=== PATIENT | female | born 2000 | race Caucasian/White ===

== ENCOUNTER 2022-03-07 14:00 | Observation (INO) ==
[2022-03-07 16:01] LABS: Basophils # (auto) 0.06 K/uL (0-0.2); Basophils % (auto) 0.5 %; Eosinophils # (auto) 0.18 K/uL (0-0.50); Eosinophils % (auto) 1.5 %; Hematocrit (blood only) 38.4 % (34.1-44.9); Hemoglobin 13.1 g/dl (12.0-16.0); Immature Granulocytes # (auto) 0.06 K/uL (0.00-0.02); Immature Granulocytes % (auto) 0.5 %; Lymphocytes # (auto) 2.76 K/uL (1.2-3.4); Lymphocytes % (auto) 22.9 %; Mean Corpuscular Hemoglobin 28.5 pg (25.0-34.0); Mean Corpuscular Hgb Conc 34.1 g/dL (32.0-36.0); Mean Corpuscular Volume 83.5 fL (80.0-100.0); Mean Platelet Volume 8.5 fL (9.4-12.3); Monocytes # (auto) 0.43 K/uL (0.24-0.82); Monocytes % (auto) 3.6 %; Neutrophils # (auto) 8.56 K/uL (1.4-6.5); Platelet Count 608 K/uL (130-400); RDW Coefficient of Variation 11.7 % (11.5-14.5); RDW Standard Deviation 35.2 fL (36.4-46.3); White Blood Count 12.05 K/ul (4.8-10.8)
[2022-03-07] MEDS ORDERED: metroNIDAZOLE 500 MG/100 ML BAG IV STA (16:21)
[2022-03-07] MEDS ORDERED: cefTRIAXone SODIUM 1,000 MG in DEXTROSE 5% AD-VAN 50 ML IV STA (16:21)
[2022-03-07 16:33] LABS: Albumin Globulin Ratio 1.1 (0.9-2); Albumin Level 4.1 gm/dl (3.4-5.0); Bilirubin,Total 0.5 mg/dl (0.2-1.0); Calcium 9.8 mg/dl (8.5-10.1); Creatinine Clr Calc Pharmacy 147.2 ml/min; Est GFR (African American) 129.7 ml/min; Est GFR (Non-African American) 111.9 ml/min; Globulin 3.7 gm/dl (2.5-4.0); Potassium 4.4 mmol/L (3.5-5.1); Total Protein 7.8 gm/dl (6.0-8.3)
--- NOTE | 2022-03-07 16:34 | Emergency Department Note ---
History of Present Illness General Chief Complaint: Abdominal Pain Stated Complaint: REFERRED BY DR; POSSIBLE ACUTE APPENDISITIS Time Seen by Provider: 03/07/22 16:06 History of Present Illness Provider Complaint: abdominal pain Onset (ago): 2 week(s) Pain Consistency: now resolved Location: RLQ Quality: + stabbing and + sharp Relieved By: + nothing Exacerbated By: + nothing Context: no foreign travel or no recent antibiotic use Associated Symptoms: no fever, no dysuria, no back pain, no chest pain and no breathing difficulty Patient had outpatient CT scan which showed appendicitis at [facility]. Related Data Last Menstrual Period: 09/13/19 Patient Confirmed : No Home Medications Medication Instructions Recorded Confirmed Type albuterol sulfate 90 mcg/actuation 90 mcg inhalation Q6H PRN sob 08/25/19 03/07/22 History breath activated powder inhaler,sensor multivitamin 1 tab PO DAILY 09/16/19 03/07/22 History desogestrel 0.15 mg-ethinyl 1 tab PO DAILY 03/07/22 03/07/22 History estradiol 0.03 mg tablet (Enskyce) scopolamine base 1 mg over 3 days 1 patch transdermal UD 03/07/22 03/07/22 History transdermal patch Allergies Allergy/AdvReac Type Severity Reaction Status Date / Time No Known Allergies Allergy Verified 03/07/22 16:36 Past Med/Surg History Medical History Asthma stable Wound cellulitis left foot--> 09/2019 after "bad sunburn, Following with wound clinic and states wound is healed at this time, improving/finishing abx Surgical History H/O wisdom tooth extraction (09/26/19) Removal of [place] Teeth #1, 16, 17, 32 Dr. Gordon 09/26/2019 No history of previous surgery Family History Grandfather (Maternal) Diabetes Grandfather (Paternal) Hypertension Other No family history of adverse response to anesthesia Social History Smoking Status: Never smoker Second Hand Exposure: No; Hx Alcohol Use: No Hx Substance Use: No Preferred Language: Telugu Communication Ability: Effective Visual Impairment: No Limitations Trouble Shooter Required: No Beliefs That Will Affect Care: None marital status: Single Feels Safe at Home: Yes Do you think of yourself as: straight/heterosexual Review of Systems A total of 10 systems reviewed and were otherwise negative Physical Exam 2 Vital Signs: Vital Signs - 24 hr 03/07/22 14:08 03/07/22 18:00 Temperature 36.5 C Temperature Source Skin Pulse Rate 119 H Pulse Rate [Apical ] 111 H Pulse Rhythm Regular Pulse Strength Normal Respiratory Rate 20 19 Respiratory Effort / Characteristics Non-Labored Sponta neous Non-Labored Sponta neous Respiratory Depth Normal Normal Blood Pressure 153/86 H Blood Pressure [Le ft Arm] 108/87 Blood Pressure Sabiha n 108 Blood Pressure Sabiha n [Left Arm] 94 Pulse Oximetry 97 94 Oxygen Delivery Me thod Room Air Room Air Sepsis Recent Feve r Within 48 Hours No Sepsis New/Unexpla ined Change in Men jose luis Status N/A Sepsis Action Take n by Nursing No Action Required Physical Exam: Physical Exam GENERAL: She is oriented to person, place, and time. She appears well-developed and well-nourished. She does not appear distressed. EYES: Conjunctivae and EOM are normal. Right eye exhibits no discharge. Left eye exhibits no discharge. No scleral icterus. NECK: Normal range of motion. Neck supple. No JVD present. CV: Normal rate, regular rhythm, normal heart sounds and intact distal pulses. There is no peripheral edema. Palpable radial pulses bue. PULM/CHEST: Effort normal and breath sounds normal. No respiratory distress. No stridor. She has no wheezes. She has no rales. ABD: The abdomen is soft and obese There is no tenderness. MUSC/SKEL: Normal range of motion. There is no peripheral edema, tenderness or deformity. NEURO: GCS eye subscore is 4. GCS verbal subscore is 5. GCS motor subscore is 6. SKIN: Skin is warm and dry. She is not diaphoretic. PSYCH: She has a normal mood and affect. Behavior is normal. Judgment and thought content normal. Course Course 1606: The patient was evaluated in room A11A. A complete history and physical exam was performed Cardiac monitoring: An order was placed for continuous cardiac monitoring. The monitor shows a rate of 90 with sinus rhythm 1632: Cassi regional merchandising manager was able to obtain external medical records which showed that the patient has CT scan of the abdomen pelvis done today at [facility] which showed acute appendicitis. Discussed case with Dr. Suresh general surgery will be down to evaluate the patient. Rocephin and Flagyl ordered for the patient. Administered Medications Discontinued Medications Ceftriaxone Sodium 1,000 mg/ (Dextrose) 50 mls @ 100 mls/hr IV NOW STA Stop: 03/07/22 16:50 Last Infusion: 03/07/22 17:56 Dose: 0 mls/hr Documented By: Admin: 03/07/22 17:22 Dose: 100 mls/hr Documented By: Metronidazole (Flagyl) 500 mg in 100 mls @ 100 mls/hr IV NOW STA Stop: 03/07/22 17:20 Last Infusion: 03/07/22 18:52 Dose: 0 mls/hr Documented By: Admin: 03/07/22 17:52 Dose: 100 mls/hr Documented By: DAY Medical Decision Making Laboratory Data Result diagrams: 03/07/22 15:50 03/07/22 15:50 Lab Results 03/07/22 03/07/22 03/07/22 Range/Units 15:50 15:50 16:48 WBC 12.05 H (4.8-10.8) K/ul RBC 4.60 (3.93-5.22) M/uL Hgb 13.1 (12.0-16.0) g/dl Hct 38.4 (34.1-44.9) % MCV 83.5 (80.0-100.0) fL MCH 28.5 (25.0-34.0) pg MCHC 34.1 (32.0-36.0) g/dL RDW Std Deviation 35.2 L (36.4-46.3) fL RDW Coeff of Elsi 11.7 (11.5-14.5) % Plt Count 608 H (130-400) K/uL MPV 8.5 L (9.4-12.3) fL Immature Gran % (Auto) 0.5 % Neut % (Auto) 71.0 % Lymph % (Auto) 22.9 % Tripp % (Auto) 3.6 % Eos % (Auto) 1.5 % Baso % (Auto) 0.5 % Neut # (Auto) 8.56 H (1.4-6.5) K/uL Lymph # (Auto) 2.76 (1.2-3.4) K/uL Tripp # (Auto) 0.43 (0.24-0.82) K/uL Eos # (Auto) 0.18 (0-0.50) K/uL Baso # (Auto) 0.06 (0-0.2) K/uL Immature Gran # (Auto) 0.06 H (0.00-0.02) K/uL Sodium 139 (136-145) mmol/L Potassium 4.4 (3.5-5.1) mmol/L Chloride 102 (98-107) mmol/L Carbon Dioxide 28 (21-32) mmol/L Anion Gap 9 (3-11) BUN 10 (6-23) mg/dl Creatinine 0.77 (0.6-1.2) mg/dl Est Cr Clr Drug Dosing 147.2 ml/min Est GFR ( Amer) 129.7 ml/min Est GFR (Non-Af Amer) 111.9 ml/min BUN/Creatinine Ratio 13.0 (10-20) Glucose 93 (70-99(Fasting)) mg/dl Calcium 9.8 (8.5-10.1) mg/dl Total Bilirubin 0.5 (0.2-1.0) mg/dl AST 37 (13-39) U/L ALT 61 H (7-52) U/L Alkaline Phosphatase 64 (34-104) U/L Total Protein 7.8 (6.0-8.3) gm/dl Albumin 4.1 (3.4-5.0) gm/dl Globulin 3.7 (2.5-4.0) gm/dl Albumin/Globulin Ratio 1.1 (0.9-2) Lipase 24 (11-82) U/L SARS-CoV-2, RNA, NAAT NEGATIVE (NEGATIVE) [facility] Narrative 1606: The patient was evaluated in room A11A. A complete history and physical exam was performed Cardiac monitoring: An order was placed for continuous cardiac monitoring. The monitor shows a rate of 90 with sinus rhythm 1632: Cassi regional merchandising manager was able to obtain external medical records which showed that the patient has CT scan of the abdomen pelvis done today at [facility] which showed acute appendicitis. Discussed case with Dr. Suresh general surgery will be down to evaluate the patient. Rocephin and Flagyl ordered for the patient. Impression & Plan Acute appendicitis Discharge Plan Visit Data Chief Complaint: Abdominal Pain Stated Complaint: REFERRED BY DR; POSSIBLE ACUTE APPENDISITIS ED Provider: Reyes Carrasquillo Discharge Problem: Acute appendicitis Patient Disposition: Admitted As Inpatient Forms Stand Alone Forms: [facility] [place] Prescriptions Prescriptions: No Action albuterol sulfate 90 mcg/actuation aero powdr breath act w/sensor 90 mcg INH Q6H PRN (Reason: sob) multivitamin Tablet 1 tab PO DAILY desogestrel-ethinyl estradiol [Enskyce] 0.15-0.03 mg tablet 1 tab PO DAILY scopolamine base 1 mg over 3 days patch 3 day 1 patch transdermal UD Referrals Referrals: Sivakumar Woodall MD [Outside Practitioners] -
--- NOTE | 2022-03-07 17:25 | History & Physical Report ---
Date of Service March 07, 2022 Assessment & Plan (1) Acute appendicitis: Plan 21-year-old woman with a 4-week history of right lower quadrant abdominal pain presents to the emergency department after a CT scan demonstrated acute appendicitis with a large phlegmon in the right lower quadrant. She has a white count of 12. She has moderate tenderness in the right lower quadrant. There are no peritoneal signs. There is no evidence of perforation. A long discussion with the patient and her mother concerning the appendicitis with phlegmon. Given the large phlegmon, as well as the length of time that this process has been active, surgical intervention could potentially result in requiring an ileocecectomy due to all the inflammation. In the case of large phlegmon, admission to the hospital with IV antibiotic therapy is warranted. All her questions were answered, and they are agreeable with this plan. We will admit her to the hospital and place her on IV Zosyn. We will monitor her over the next 24 to 48 hours. If her symptoms worsen, she may require more urgent operation. If she responds to antibiotic treatment, we will plan for a full course of antibiotics with interval appendectomy in the future. History of Present Illness Chief Complaint: Acute appendicitis Primary Care Provider: Sivakumar Woodall MD 21-year-old woman presents with a 4-week history of vague right lower quadrant cramping pain. She states it occurred 2-3 times per week. It has not been accompanied by nausea, vomiting, fevers, chills. She denies constipation or diarrhea. She denies blood in her stool. The pain has been on the right side radiating around to her back. She was seen by her primary care physician today, who ordered labs and a CT scan. The CT scan demonstrates acute appendicitis with a large phlegmon involving the cecum and terminal ileum. It does not appear that the appendix is perforated and there is no fluid collection. Allergies Allergy/AdvReac Type Severity Reaction Status Date / Time No Known Allergies Allergy Verified 03/07/22 16:36 Home Medications Medication Instructions Recorded Confirmed Type albuterol sulfate 90 mcg/actuation 90 mcg inhalation Q6H PRN sob 08/25/19 03/07/22 History breath activated powder inhaler,sensor multivitamin 1 tab PO DAILY 09/16/19 03/07/22 History desogestrel 0.15 mg-ethinyl 1 tab PO DAILY 03/07/22 03/07/22 History estradiol 0.03 mg tablet (Enskyce) scopolamine base 1 mg over 3 days 1 patch transdermal UD 03/07/22 03/07/22 History transdermal patch Past Med/Surg History Medical History Asthma stable Wound cellulitis left foot--> 09/2019 after "bad sunburn, Following with wound clinic and states wound is healed at this time, improving/finishing abx Surgical History H/O wisdom tooth extraction (09/26/19) Removal of [place] Teeth #1, 16, 17, 32 Dr. Gordon 09/26/2019 No history of previous surgery Family History Grandfather (Maternal) Diabetes Grandfather (Paternal) Hypertension Other No family history of adverse response to anesthesia Social History Smoking Status: Never smoker Second Hand Exposure: No; Hx Alcohol Use: No Hx Substance Use: No Preferred Language: Taiwanese Communication Ability: Effective Visual Impairment: No Limitations School Counselor Required: No Beliefs That Will Affect Care: None marital status: Single Feels Safe at Home: Yes Do you think of yourself as: straight/heterosexual Review of Systems Review of Systems: All systems reviewed & are unremarkable except as noted in HPI & below Physical Exam Constitutional: WD/WN, vitals as above Eyes: PERRL, conjunctivae normal, anicteric sclerae Neck: trachea midline, no thyromegaly Respiratory: normal respiratory effort, lungs clear to auscultation Cardiovascular: RRR, no murmur, no edema Gastrointestinal (Abdomen): Inspection/Auscultation: abdomen normal to inspection; abdomen not distended Percussion/Palpation: + abdomen tender (RLQ/McBurney's point) and abdomen soft; no guarding, abdomen not rigid and abdomen not firm Skin: no rashes, warm and dry Psychiatric: A+Ox3, euthymic affect Results & Data Results & Data ([place]) Vital Signs (Past 12 Hours) Vital Signs Temp Pulse Resp BP Pulse Ox O2 Del Method 03/07/22 14:08 36.5 C 119 H 20 153/86 H 97 Room Air Laboratory Results 03/07/22 03/07/22 03/07/22 Range/Units 16:48 15:50 15:50 WBC 12.05 H (4.8-10.8) K/ul RBC 4.60 (3.93-5.22) M/uL Hgb 13.1 (12.0-16.0) g/dl Hct 38.4 (34.1-44.9) % MCV 83.5 (80.0-100.0) fL MCH 28.5 (25.0-34.0) pg MCHC 34.1 (32.0-36.0) g/dL RDW Std Deviation 35.2 L (36.4-46.3) fL RDW Coeff of Elsi 11.7 (11.5-14.5) % Plt Count 608 H (130-400) K/uL MPV 8.5 L (9.4-12.3) fL Immature Gran % (Auto) 0.5 % Neut % (Auto) 71.0 % Lymph % (Auto) 22.9 % Burke % (Auto) 3.6 % Eos % (Auto) 1.5 % Baso % (Auto) 0.5 % Neut # (Auto) 8.56 H (1.4-6.5) K/uL Lymph # (Auto) 2.76 (1.2-3.4) K/uL Burke # (Auto) 0.43 (0.24-0.82) K/uL Eos # (Auto) 0.18 (0-0.50) K/uL Baso # (Auto) 0.06 (0-0.2) K/uL Immature Gran # (Auto) 0.06 H (0.00-0.02) K/uL Sodium 139 (136-145) mmol/L Potassium 4.4 (3.5-5.1) mmol/L Chloride 102 (98-107) mmol/L Carbon Dioxide 28 (21-32) mmol/L Anion Gap 9 (3-11) BUN 10 (6-23) mg/dl Creatinine 0.77 (0.6-1.2) mg/dl Est Cr Clr Drug Dosing 147.2 ml/min Est GFR ( Amer) 129.7 ml/min Est GFR (Non-Af Amer) 111.9 ml/min BUN/Creatinine Ratio 13.0 (10-20) Glucose 93 (70-99(Fasting)) mg/dl Calcium 9.8 (8.5-10.1) mg/dl Total Bilirubin 0.5 (0.2-1.0) mg/dl AST 37 (13-39) U/L ALT 61 H (7-52) U/L Alkaline Phosphatase 64 (34-104) U/L Total Protein 7.8 (6.0-8.3) gm/dl Albumin 4.1 (3.4-5.0) gm/dl Globulin 3.7 (2.5-4.0) gm/dl Albumin/Globulin Ratio 1.1 (0.9-2) Lipase 24 (11-82) U/L SARS-CoV-2, RNA, NAAT NEGATIVE (NEGATIVE) Code Status & VTE Plan VTE Prophylaxis Plan VTE Prophylaxis will be ordered: Yes
[2022-03-07] MEDS ORDERED: traMADol HCL 50 MG TABLET PO PRN (20:43)
[2022-03-07] MEDS ORDERED: MoRPHine SULFATE 2 MG/ML CARP IV PRN (20:43)
[2022-03-07] MEDS ORDERED: KETOROLAC 30 MG/ML VIAL IV PRN (20:43)
[2022-03-07] MEDS ORDERED: diphenhydrAMINE Capsule 25 MG CAP PO PRN (20:43)
[2022-03-07] MEDS ORDERED: ACETAMINOPHEN 325 MG TAB PO PRN (20:43)
[2022-03-07] MEDS ORDERED: ONDANSETRON INJ 2 MG/ML 2 ML VIAL IV PRN (20:43)
[2022-03-07] MEDS ORDERED: PROMETHAZINE HCL 12.5 MG in SODIUM CHLORIDE 0.9% 50 ML IV PRN (20:43)
[2022-03-07] MEDS: PIPERACILLIN/TAZOBACTAM 3.375 GM in DEXTROSE 5% 100 ML IV SCH (22:09)
[2022-03-07] MEDS: ENOXAPARIN INJ 40 MG/0.4 ML SYR SQ SCH (22:32)
[2022-03-08] MEDS: PIPERACILLIN/TAZOBACTAM 3.375 GM in DEXTROSE 5% 100 ML IV SCH ×3 (05:52→20:19)
[2022-03-08 09:15] LABS: Appearance Urine Clear (Clear); Bacteria Urine Automated Negative (Negative); Bilirubin Urine Negative (Negative); Blood Urine Negative (Negative); Color Urine Yellow; Epithelial Cell Urine Auto >30 /lpf (0-5); Glucose Urine UA Negative (Negative); Ketones Urine Trace (Negative); Leukocyte Esterase Urine 2+ (Negative); Nitrite Urine Negative (Negative); Protein Urine Negative (Negative); RBC Urine Automated 0-4 /hpf (0-4); Specific Gravity Urine 1.025 (1.000-1.030); Urobilinogen Urine Negative (Negative)
--- NOTE | 2022-03-08 10:58 | Surgery Progress Note ---
Date of Service March 08, 2022 Assessment & Plan (1) Acute appendicitis: Plan: with large phlegmon right lower quadrant. Appears to be responding to IV antibiotics. Will continue for 48 hours prior to switching to PO. continue diet. Recheck labs in am. Admission and Anticipated Discharge Date Admission Date: March 07, 2022 Subjective No pain. tolerating diet. Ambulating. No nausea. Parents at bedside Review of Systems Review of Systems: All systems reviewed & are unremarkable except as noted in HPI & below Physical Exam Constitutional: WD/WN, vitals as above Respiratory: normal respiratory effort, lungs clear to auscultation Cardiovascular: RRR, no murmur, no edema Gastrointestinal (Abdomen): normal bowel sounds, soft, nontender, no hepatosplenomegaly Musculoskeletal: no cyanosis or clubbing, extremities motor strength 5/5 Neurologic: awake; no focal motor deficits Psychiatric: A+Ox3, euthymic affect Results & Data ([facility]) Vital Signs (Past 12 Hours) Vital Signs Temp Pulse Resp BP Pulse Ox O2 Del Method 03/08/22 07:59 37.0 C 89 14 121/78 98 Room Air Laboratory Results 03/08/22 03/08/22 03/07/22 Range/Units Unknown Unknown 16:48 WBC (4.8-10.8) K/ul RBC (3.93-5.22) M/uL Hgb (12.0-16.0) g/dl Hct (34.1-44.9) % MCV (80.0-100.0) fL MCH (25.0-34.0) pg MCHC (32.0-36.0) g/dL RDW Std Deviation (36.4-46.3) fL RDW Coeff of Elsi (11.5-14.5) % Plt Count (130-400) K/uL MPV (9.4-12.3) fL Immature Gran % (Auto) % Neut % (Auto) % Lymph % (Auto) % Person % (Auto) % Eos % (Auto) % Baso % (Auto) % Neut # (Auto) (1.4-6.5) K/uL Lymph # (Auto) (1.2-3.4) K/uL Person # (Auto) (0.24-0.82) K/uL Eos # (Auto) (0-0.50) K/uL Baso # (Auto) (0-0.2) K/uL Immature Gran # (Auto) (0.00-0.02) K/uL Sodium (136-145) mmol/L Potassium (3.5-5.1) mmol/L Chloride (98-107) mmol/L Carbon Dioxide (21-32) mmol/L Anion Gap (3-11) BUN (6-23) mg/dl Creatinine (0.6-1.2) mg/dl Est Cr Clr Drug Dosing ml/min Est GFR ( Amer) ml/min Est GFR (Non-Af Amer) ml/min BUN/Creatinine Ratio (10-20) Glucose (70-99(Fasting)) mg/dl Calcium (8.5-10.1) mg/dl Total Bilirubin (0.2-1.0) mg/dl AST (13-39) U/L ALT (7-52) U/L Alkaline Phosphatase (34-104) U/L Total Protein (6.0-8.3) gm/dl Albumin (3.4-5.0) gm/dl Globulin (2.5-4.0) gm/dl Albumin/Globulin Ratio (0.9-2) Lipase (11-82) U/L Urine Color Yellow Urine Appearance Clear (Clear) Urine pH 6.0 (4.5-7.5) Ur Specific Atkinson 1.025 (1.000-1.030) Urine Protein Negative (Negative) Urine Glucose (UA) Negative (Negative) Urine Ketones Trace H (Negative) Urine Blood Negative (Negative) Urine Nitrite Negative (Negative) Urine Bilirubin Negative (Negative) Urine Urobilinogen Negative (Negative) Ur Leukocyte Esterase 2+ H (Negative) Urine WBC (Auto) 5-10 H (0-5) /hpf Urine RBC (Auto) 0-4 (0-4) /hpf U Hyaline Cast (Auto) 1-5 (0-5) /lpf U Epithel Cells (Auto) >30 H (0-5) /lpf Urine Bacteria (Auto) Negative (Negative) POC Ur Test Pending SARS-CoV-2, RNA, NAAT NEGATIVE (NEGATIVE) 03/07/22 03/07/22 Range/Units 15:50 15:50 WBC 12.05 H (4.8-10.8) K/ul RBC 4.60 (3.93-5.22) M/uL Hgb 13.1 (12.0-16.0) g/dl Hct 38.4 (34.1-44.9) % MCV 83.5 (80.0-100.0) fL MCH 28.5 (25.0-34.0) pg MCHC 34.1 (32.0-36.0) g/dL RDW Std Deviation 35.2 L (36.4-46.3) fL RDW Coeff of Elsi 11.7 (11.5-14.5) % Plt Count 608 H (130-400) K/uL MPV 8.5 L (9.4-12.3) fL Immature Gran % (Auto) 0.5 % Neut % (Auto) 71.0 % Lymph % (Auto) 22.9 % Person % (Auto) 3.6 % Eos % (Auto) 1.5 % Baso % (Auto) 0.5 % Neut # (Auto) 8.56 H (1.4-6.5) K/uL Lymph # (Auto) 2.76 (1.2-3.4) K/uL Person # (Auto) 0.43 (0.24-0.82) K/uL Eos # (Auto) 0.18 (0-0.50) K/uL Baso # (Auto) 0.06 (0-0.2) K/uL Immature Gran # (Auto) 0.06 H (0.00-0.02) K/uL Sodium 139 (136-145) mmol/L Potassium 4.4 (3.5-5.1) mmol/L Chloride 102 (98-107) mmol/L Carbon Dioxide 28 (21-32) mmol/L Anion Gap 9 (3-11) BUN 10 (6-23) mg/dl Creatinine 0.77 (0.6-1.2) mg/dl Est Cr Clr Drug Dosing 147.2 ml/min Est GFR ( Amer) 129.7 ml/min Est GFR (Non-Af Amer) 111.9 ml/min BUN/Creatinine Ratio 13.0 (10-20) Glucose 93 (70-99(Fasting)) mg/dl Calcium 9.8 (8.5-10.1) mg/dl Total Bilirubin 0.5 (0.2-1.0) mg/dl AST 37 (13-39) U/L ALT 61 H (7-52) U/L Alkaline Phosphatase 64 (34-104) U/L Total Protein 7.8 (6.0-8.3) gm/dl Albumin 4.1 (3.4-5.0) gm/dl Globulin 3.7 (2.5-4.0) gm/dl Albumin/Globulin Ratio 1.1 (0.9-2) Lipase 24 (11-82) U/L Urine Color Urine Appearance (Clear) Urine pH (4.5-7.5) Ur Specific Atkinson (1.000-1.030) Urine Protein (Negative) Urine Glucose (UA) (Negative) Urine Ketones (Negative) Urine Blood (Negative) Urine Nitrite (Negative) Urine Bilirubin (Negative) Urine Urobilinogen (Negative) Ur Leukocyte Esterase (Negative) Urine WBC (Auto) (0-5) /hpf Urine RBC (Auto) (0-4) /hpf U Hyaline Cast (Auto) (0-5) /lpf U Epithel Cells (Auto) (0-5) /lpf Urine Bacteria (Auto) (Negative) POC Ur Test SARS-CoV-2, RNA, NAAT (NEGATIVE) (1) Acute appendicitis Acute appendicitis type: unspecified acute appendicitis type Qualified Code(s): K35.80 - Unspecified acute appendicitis
[2022-03-08] MEDS: ENOXAPARIN INJ 40 MG/0.4 ML SYR SQ SCH (20:20)
[2022-03-09] MEDS: PIPERACILLIN/TAZOBACTAM 3.375 GM in DEXTROSE 5% 100 ML IV SCH (05:42)
[2022-03-09 07:19] LABS: Basophils # (auto) 0.04 K/uL (0-0.2); Basophils % (auto) 0.5 %; Eosinophils # (auto) 0.45 K/uL (0-0.50); Eosinophils % (auto) 5.2 %; Hematocrit (blood only) 39.3 % (34.1-44.9); Hemoglobin 13.6 g/dl (12.0-16.0); Immature Granulocytes # (auto) 0.04 K/uL (0.00-0.02); Immature Granulocytes % (auto) 0.5 %; Lymphocytes # (auto) 3.17 K/uL (1.2-3.4); Lymphocytes % (auto) 36.7 %; Mean Corpuscular Hemoglobin 28.6 pg (25.0-34.0); Mean Corpuscular Hgb Conc 34.6 g/dL (32.0-36.0); Mean Corpuscular Volume 82.7 fL (80.0-100.0); Mean Platelet Volume 8.6 fL (9.4-12.3); Monocytes # (auto) 0.46 K/uL (0.24-0.82); Monocytes % (auto) 5.3 %; Neutrophils # (auto) 4.47 K/uL (1.4-6.5); Neutrophils % (auto) 51.8 %; Platelet Count 529 K/uL (130-400); RDW Standard Deviation 35.8 fL (36.4-46.3); Red Blood Count 4.75 M/uL (3.93-5.22); White Blood Count 8.63 K/ul (4.8-10.8)
[2022-03-09 07:43] LABS: BUN Creatinine Ratio 11.6 (10-20); Calcium 9.5 mg/dl (8.5-10.1); Creatinine Clr Calc Pharmacy 136.1 ml/min; Est GFR (African American) 113.5 ml/min; Est GFR (Non-African American) 97.9 ml/min; Potassium 4.5 mmol/L (3.5-5.1)
--- NOTE | 2022-03-09 09:46 | Surgery Progress Note ---
Date of Service March 09, 2022 Assessment & Plan (1) Acute appendicitis: Plan: with large phlegmon right lower quadrant. Appears to be responding to IV antibiotics. Leukocytosis resolved. Stable for discharge today on PO antibiotics. Admission and Anticipated Discharge Date Admission Date: March 07, 2022 Subjective No pain. tolerating diet. Ambulating. No nausea. Feels ready to go home. Review of Systems Review of Systems: All systems reviewed & are unremarkable except as noted in HPI & below Physical Exam Constitutional: WD/WN, vitals as above Respiratory: normal respiratory effort, lungs clear to auscultation Cardiovascular: RRR, no murmur, no edema Gastrointestinal (Abdomen): normal bowel sounds, soft, nontender, no hepatosplenomegaly Musculoskeletal: no cyanosis or clubbing, extremities motor strength 5/5 Neurologic: awake; no focal motor deficits Psychiatric: A+Ox3, euthymic affect Results & Data ([facility]) Vital Signs (Past 12 Hours) Vital Signs Temp Pulse Resp BP Pulse Ox O2 Del Method 03/09/22 07:50 36.8 C 82 16 113/73 99 Room Air Laboratory Results 03/09/22 03/09/22 Range/Units 07:04 07:04 WBC 8.63 (4.8-10.8) K/ul RBC 4.75 (3.93-5.22) M/uL Hgb 13.6 (12.0-16.0) g/dl Hct 39.3 (34.1-44.9) % MCV 82.7 (80.0-100.0) fL MCH 28.6 (25.0-34.0) pg MCHC 34.6 (32.0-36.0) g/dL RDW Std Deviation 35.8 L (36.4-46.3) fL RDW Coeff of Elsi 12.0 (11.5-14.5) % Plt Count 529 H (130-400) K/uL MPV 8.6 L (9.4-12.3) fL Immature Gran % (Auto) 0.5 % Neut % (Auto) 51.8 % Lymph % (Auto) 36.7 % Ashe % (Auto) 5.3 % Eos % (Auto) 5.2 % Baso % (Auto) 0.5 % Neut # (Auto) 4.47 (1.4-6.5) K/uL Lymph # (Auto) 3.17 (1.2-3.4) K/uL Ashe # (Auto) 0.46 (0.24-0.82) K/uL Eos # (Auto) 0.45 (0-0.50) K/uL Baso # (Auto) 0.04 (0-0.2) K/uL Immature Gran # (Auto) 0.04 H (0.00-0.02) K/uL Sodium 139 (136-145) mmol/L Potassium 4.5 (3.5-5.1) mmol/L Chloride 102 (98-107) mmol/L Carbon Dioxide 29 (21-32) mmol/L Anion Gap 8 (3-11) BUN 10 (6-23) mg/dl Creatinine 0.86 (0.6-1.2) mg/dl Est Cr Clr Drug Dosing 136.1 ml/min Est GFR ( Amer) 113.5 ml/min Est GFR (Non-Af Amer) 97.9 ml/min BUN/Creatinine Ratio 11.6 (10-20) Glucose 115 H (70-99(Fasting)) mg/dl Calcium 9.5 (8.5-10.1) mg/dl (1) Acute appendicitis Acute appendicitis type: unspecified acute appendicitis type Qualified Code(s): K35.80 - Unspecified acute appendicitis
== END 2022-03-09 11:11 | disposition home or self-care (01) ==
LOC: ED 14:00 → 3E 14:00